=== PATIENT | male | born 1960 | race Caucasian/White ===

== ENCOUNTER 2018-08-14 12:09 | Emergency (ER) | payer BC, SELFPAY ==
[2018-08-14 12:10] VITALS: BP 172/80; PULSE 90; RESP 16; TEMP 36.9; O2SAT 99; BMI 33.3
[2018-08-14 12:13] VITALS: O2SAT 100
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
[2018-08-14 13:49] VITALS: BP 158/88; PULSE 70; RESP 16; O2SAT 98
== END 2018-08-14 13:49 | disposition home or self-care (01) ==
LOC: ED 12:51
PROVIDERS: Emergency Provider Emergency Medicine
DX: S20.212A Contusion of left front wall of thorax, initial encounter (principal); V43.52XA Car driver injured in collision with other type car in traffic accident, initial encounter; Y93.9 Activity, unspecified; Y92.9 Unspecified place or not applicable; Y99.9 Unspecified external cause status; Z72.0 Tobacco use
CPT/HCPCS: 71101; 73030; 99284; J7030; A4216